=== PATIENT | female | born 1940 | race Caucasian/White ===

== ENCOUNTER 2021-10-13 10:55 | Outpatient (CLI) | payer MEDICARE | END 2021-10-13 10:56 | disposition home or self-care (01) | LOC: TBSIIMAG 10:55 | PROVIDERS: ATTEND Neurological Surgery | DX: M47.816 Spondylosis without myelopathy or radiculopathy, lumbar region (principal); M47.12 Other spondylosis with myelopathy, cervical region; R26.89 Other abnormalities of gait and mobility; G95.9 Disease of spinal cord, unspecified; M48.56XA Collapsed vertebra, not elsewhere classified, lumbar region, initial encounter for fracture; M47.814 Spondylosis without myelopathy or radiculopathy, thoracic region; M51.34 Other intervertebral disc degeneration, thoracic region; M47.812 Spondylosis without myelopathy or radiculopathy, cervical region; M48.02 Spinal stenosis, cervical region; M50.30 Other cervical disc degeneration, unspecified cervical region; G95.89 Other specified diseases of spinal cord | CPT/HCPCS: 72100; 72141; 72146 ==

== ENCOUNTER 2022-08-13 21:11 | Emergency (ER) | payer MEDICARE ==
[2022-08-13 22:43] LABS: #Eosinphils 0.1 thou/uL (0.0-0.7); #Lymphocytes 2.3 thou/uL (1.20-3.40); #Neutrophils 7.1 thou/uL (1.40-6.50); %Basophils 0.1 % (0.0-1.0); %Lymphocytes 21.6 % (21.0-51.0); %Monocytes 9.6 % (0.0-10.0); %Neutrophils 67.7 % (42.0-75.0); Hemoglobin 12.5 g/dL (12.0-16.0); Mean Corpuscular HGB CONC 32.9 g/dL (32.0-36.0); Mean Corpuscular Hemoglobin 30.7 pg (27.0-31.0); Mean Corpuscular Volume 93.3 fl (78.0-98.0); Mean Platelet Volume 9.4 fL (7.4-10.4); Platelet Count 245 10x3/uL (130-400); RBC Distribution Width 11.9 % (11.5-14.5); Red Blood Cell (RBC) Count 4.07 mill/uL (4.20-5.40); White Blood Cell (WBC) Count 10.5 10x3/uL (4.8-10.8)
[2022-08-13 23:02] LABS: ALT (SGPT) 18 U/L (8-55); AST (SGOT) 19 U/L (5-34); Albumin 3.9 g/dL (3.4-4.8); Alkaline Phosphatase 67 U/L (40-110); Anion Gap 15 mmol/L (10-20); BUN (Urea Nitrogen) 22 mg/dL (9.8-20.1); Bilirubin, Total 0.4 mg/dL (0.2-1.2); Calc. Creatinine Clearance 0 mL/min (70-130); Calcium 8.9 mg/dL (7.8-10.44); Carbon Dioxide 24 mmol/L (23-31); Chloride 105 mmol/L (98-107); Estimated GFR 78; Globulin 2.6 g/dL (2.4-3.5); Glucose 110 mg/dL (83-110); Potassium 3.8 mmol/L (3.5-5.1); Protein, Total 6.5 g/dL (5.8-8.1); Sodium 140 mmol/L (136-145)
[2022-08-14] MEDS ORDERED: Ondansetron PF 4 MG/2 ML Vial ONE (00:44)
[2022-08-14] MEDS ORDERED: Morphine 4 MG/ML VIAL ONE (00:45)
== END 2022-08-14 00:50 | disposition home or self-care (01) ==
LOC: ERS 21:11
DX: M25.552 Pain in left hip (principal)
CPT/HCPCS: 36415; 72170; 72192; 80053; 85025; 96374; 96375; J2270; J2405

== ENCOUNTER 2022-10-05 10:05 | Observation (INO) | payer MEDICARE ==
[~2022-10-05 10:05] MED LIST: Magnevist 469MG/ML 20 ML VIAL ONE
[2022-10-05] MEDS ORDERED: Ketorolac Tromethamine 30 MG/ML VIAL ONE (11:19)
[2022-10-05] MEDS ORDERED: Diazepam 10 MG/2 ML SYRINGE ONE (11:19)
[2022-10-05 11:50] LABS: #Eosinphils 0.1 thou/uL (0.0-0.7); #Lymphocytes 1.5 thou/uL (1.20-3.40); #Monocytes 1.3 thou/uL (0.11-0.59); #Neutrophils 11.4 thou/uL (1.40-6.50); %Basophils 0.3 % (0.0-1.0); %Eosinophils 0.4 % (0.0-10.0); %Lymphocytes 10.7 % (21.0-51.0); %Neutrophils 79.6 % (42.0-75.0); Hemoglobin 12.7 g/dL (12.0-16.0); Mean Corpuscular HGB CONC 31.8 g/dL (32.0-36.0); Mean Corpuscular Hemoglobin 28.7 pg (27.0-31.0); Mean Corpuscular Volume 90.2 fl (78.0-98.0); Mean Platelet Volume 8.4 fL (7.4-10.4); Platelet Count 451 10x3/uL (130-400); RBC Distribution Width 12.8 % (11.5-14.5); Red Blood Cell (RBC) Count 4.44 mill/uL (4.20-5.40); White Blood Cell (WBC) Count 14.3 10x3/uL (4.8-10.8)
[2022-10-05] MEDS ORDERED: Fentanyl 100 MCG/2 ML VIAL ONE ×2 (11:56→12:28)
[2022-10-05 12:01] LABS: ALT (SGPT) 21 U/L (8-55); AST (SGOT) 17 U/L (5-34); Albumin 3.6 g/dL (3.4-4.8); Alkaline Phosphatase 69 U/L (40-110); Anion Gap 14 mmol/L (10-20); BUN (Urea Nitrogen) 22 mg/dL (9.8-20.1); Bilirubin, Total 0.3 mg/dL (0.2-1.2); Calc. Creatinine Clearance 0 mL/min (70-130); Carbon Dioxide 22 mmol/L (23-31); Chloride 106 mmol/L (98-107); Estimated GFR 82; Globulin 3.1 g/dL (2.4-3.5); Glucose 125 mg/dL (83-110); Potassium 3.9 mmol/L (3.5-5.1); Protein, Total 6.7 g/dL (5.8-8.1); Sodium 138 mmol/L (136-145)
[2022-10-05 14:52] LABS: Bacteria/HPF None Seen HPF (None Seen); Bilirubin Negative (Negative); Blood, Urine 1+ (Negative); Clarity Clear (Clear); Glucose, Urine (Dipstick) Normal (Negative); Ketone, Urine Negative (Negative); Leukocyte Negative Leu/uL (Negative); Nitrite Negative (Negative); Protein, Urine (Dipstick) 10 mg/dL (Neg-Trace); RBC/HPF 0-3 HPF (0-3); Specific Gravity, Urine 1.042 (1.002-1.036); Squamous Epithelial 0-3 HPF (0-3); WBC/HPF 0-3 HPF (0-3)
[2022-10-05] MEDS ORDERED: Morphine 4 MG/ML VIAL ONE (15:45)
[2022-10-05] MEDS ORDERED: Ondansetron PF 4 MG/2 ML Vial ONE (15:45)
[2022-10-05] MEDS ORDERED: Ondansetron ODT 4 MG TAB SL PRN (18:00)
[2022-10-05] MEDS ORDERED: Acetaminophen 325 MG TAB PO PRN (18:00)
[2022-10-05] MEDS ORDERED: Ondansetron PF 4 MG/2 ML Vial IVP PRN ×2 (18:00→18:41)
[2022-10-05 18:19] VITALS: BMI 32.4
[2022-10-05] MEDS ORDERED: Morphine 4 MG/ML VIAL SLOW IVP PRN (18:41)
[2022-10-05] MEDS ORDERED: Ondansetron ODT 4 MG TAB PO PRN (18:41)
[2022-10-06] MEDS ORDERED: Gabapentin 300 MG CAP PO PRN (01:32)
[2022-10-06] MEDS ORDERED: cloNIDine 0.1 MG TAB PO PRN (01:32)
[2022-10-06] MEDS ORDERED: Levothyroxine Sodium 50 MCG TAB PO SCH ×2 (01:45→06:00)
[2022-10-06] MEDS ORDERED: Rosuvastatin 10 MG TAB PO SCH (01:45)
[2022-10-06] MEDS: Acetaminophen 325 MG TAB PO PRN ×2 (03:24→15:14)
[2022-10-06 06:02] LABS: #Eosinphils 0.1 thou/uL (0.0-0.7); #Lymphocytes 2.3 thou/uL (1.20-3.40); #Monocytes 1.1 thou/uL (0.11-0.59); %Basophils 0.1 % (0.0-1.0); %Eosinophils 0.9 % (0.0-10.0); %Monocytes 10.7 % (0.0-10.0); %Neutrophils 66.3 % (42.0-75.0); Hemoglobin 12.2 g/dL (12.0-16.0); Mean Corpuscular HGB CONC 33.1 g/dL (32.0-36.0); Mean Corpuscular Hemoglobin 30.1 pg (27.0-31.0); Mean Corpuscular Volume 90.8 fl (78.0-98.0); Mean Platelet Volume 8.6 fL (7.4-10.4); Platelet Count 402 10x3/uL (130-400); RBC Distribution Width 12.9 % (11.5-14.5); Red Blood Cell (RBC) Count 4.05 mill/uL (4.20-5.40); White Blood Cell (WBC) Count 10.6 10x3/uL (4.8-10.8)
[2022-10-06 06:26] LABS: Anion Gap 11 mmol/L (10-20); BUN (Urea Nitrogen) 16 mg/dL (9.8-20.1); Calc. Creatinine Clearance 89 mL/min (70-130); Carbon Dioxide 25 mmol/L (23-31); Chloride 106 mmol/L (98-107); Estimated GFR 88; Glucose 115 mg/dL (83-110); Potassium 4.1 mmol/L (3.5-5.1); Sodium 138 mmol/L (136-145)
[2022-10-06] MEDS ORDERED: Diltiazem HCl SR 60 mg Capsule PO SCH (09:00)
[2022-10-06] MEDS ORDERED: methylPREDNISolone Sod Succ 40 MG VIAL IVP SCH (09:00)
[2022-10-06 12:48] VITALS: TEMP 97.8
[2022-10-06 16:36] VITALS: BP 155/68
[2022-10-06] MEDS ORDERED: Rivaroxaban 10 MG TAB PO SCH (21:00)
== END 2022-10-06 16:52 | disposition home or self-care (01) ==
LOC: ERS 10:05 → SURG A 15:38
PROVIDERS: ADMIT Internal Medicine; ATTEND Internal Medicine
DX: M51.17 Intervertebral disc disorders with radiculopathy, lumbosacral region (principal); D72.829 Elevated white blood cell count, unspecified; I10 Essential (primary) hypertension; E78.5 Hyperlipidemia, unspecified; E03.9 Hypothyroidism, unspecified; I48.0 Paroxysmal atrial fibrillation; M43.16 Spondylolisthesis, lumbar region; M51.36 Other intervertebral disc degeneration, lumbar region; M48.061 Spinal stenosis, lumbar region without neurogenic claudication; M48.07 Spinal stenosis, lumbosacral region; Z66 Do not resuscitate; Z79.01 Long term (current) use of anticoagulants; Z79.890 Hormone replacement therapy; Z79.899 Other long term (current) drug therapy; Z88.7 Allergy status to serum and vaccine
CPT/HCPCS: 36415; 51701; 72158; 80048; 80053; 81003; 81015; 85025; 85652; 86140; 96374; 96375; 96376; G0378; J1885; J2270; J2405; J2920; J3010; J3360

== ENCOUNTER 2022-10-07 12:15 | Inpatient (IN) | payer MEDICARE ==
[2022-10-07] MEDS ORDERED: Ketorolac Tromethamine 30 MG/ML VIAL ONE (12:33)
[2022-10-07] MEDS ORDERED: Ondansetron PF 4 MG/2 ML Vial ONE (12:33)
[2022-10-07] MEDS ORDERED: HYDROmorphone 0.5 MG/0.5 ML SYRINGE ONE ×2 (12:33→13:54)
[2022-10-07 12:56] LABS: #Monocytes 0.4 thou/uL (0.11-0.59); #Neutrophils 15.3 thou/uL (1.40-6.50); %Basophils 0.1 % (0.0-1.0); %Eosinophils 0.2 % (0.0-10.0); %Lymphocytes 5.9 % (21.0-51.0); %Monocytes 2.4 % (0.0-10.0); %Neutrophils 91.4 % (42.0-75.0); Hemoglobin 12.9 g/dL (12.0-16.0); Mean Corpuscular HGB CONC 32.4 g/dL (32.0-36.0); Mean Corpuscular Hemoglobin 29.3 pg (27.0-31.0); Mean Corpuscular Volume 90.4 fl (78.0-98.0); Mean Platelet Volume 8.4 fL (7.4-10.4); Platelet Count 553 10x3/uL (130-400); White Blood Cell (WBC) Count 16.8 10x3/uL (4.8-10.8)
[2022-10-07 13:15] LABS: ALT (SGPT) 21 U/L (8-55); AST (SGOT) 18 U/L (5-34); Albumin 3.9 g/dL (3.4-4.8); Alkaline Phosphatase 73 U/L (40-110); Anion Gap 17 mmol/L (10-20); BUN (Urea Nitrogen) 21 mg/dL (9.8-20.1); Bilirubin, Total 0.4 mg/dL (0.2-1.2); Calc. Creatinine Clearance 0 mL/min (70-130); Calcium 9.4 mg/dL (7.8-10.44); Carbon Dioxide 22 mmol/L (23-31); Chloride 104 mmol/L (98-107); Estimated GFR 80; Globulin 3.5 g/dL (2.4-3.5); Glucose 234 mg/dL (83-110); Magnesium 1.8 mg/dL (1.6-2.6); Potassium 4.1 mmol/L (3.5-5.1); Protein, Total 7.4 g/dL (5.8-8.1); Sodium 139 mmol/L (136-145)
[2022-10-07] MEDS ORDERED: Dexamethasone 10 MG/ML VIAL ONE (13:54)
[2022-10-07 17:51] VITALS: BMI 32.2
[2022-10-07] MEDS ORDERED: Ondansetron ODT 4 MG TAB PO PRN (20:06)
[2022-10-07] MEDS ORDERED: Acetaminophen 325 MG TAB PO PRN (20:06)
[2022-10-07] MEDS ORDERED: Morphine 2 MG/ML VIAL SLOW IVP PRN (20:08)
[2022-10-07] MEDS ORDERED: Docusate 100 MG CAP PO PRN (20:08)
[2022-10-07] MEDS ORDERED: Polyethylene Glycol 3350 17 GM Packet PO PRN (20:08)
[2022-10-07] MEDS ORDERED: Electrolyte Replacement Protocol 1 EACH FS SCH (20:15)
[2022-10-07] MEDS ORDERED: Rosuvastatin 10 MG TAB PO SCH (20:15)
[2022-10-07] MEDS: Gabapentin 300 MG CAP PO SCH (20:53)
[2022-10-07] MEDS: Ketorolac Tromethamine 30 MG/ML VIAL IVP PRN (20:53)
[2022-10-07] MEDS: Famotidine 20 MG TAB PO SCH (20:54)
[2022-10-07] MEDS: Diltiazem HCl SR 60 mg Capsule PO SCH (20:54)
[2022-10-07] MEDS ORDERED: Magnesium 2 GM/50 ML(in water) 2 GM in Premix Bag 1 BAG IVPB SCH (22:00)
[2022-10-07 23:38] LABS: Bacteria/HPF None Seen HPF (None Seen); Bilirubin Negative (Negative); Blood, Urine 1+ (Negative); CAUTI Indications for Culture Dysuria,urgency,freq; Clarity Turbid (Clear); Glucose, Urine (Dipstick) Normal (Negative); Ketone, Urine Negative (Negative); Leukocyte 500 Leu/uL (Negative); Nitrite Negative (Negative); Protein, Urine (Dipstick) Negative (Neg-Trace); RBC/HPF 0-3 HPF (0-3); Specific Gravity, Urine 1.013 (1.002-1.036); Squamous Epithelial 0-3 HPF (0-3); Urobilinogen Normal mg/dL (Less than 2)
[2022-10-07 23:39] LABS: Urine Culture Reflex Yes Yes
[2022-10-08] MEDS: Ketorolac Tromethamine 30 MG/ML VIAL IVP PRN (04:26)
[2022-10-08 05:29] LABS: Hemoglobin 12.2 g/dL (12.0-16.0); Mean Corpuscular HGB CONC 32.6 g/dL (32.0-36.0); Mean Corpuscular Hemoglobin 29.4 pg (27.0-31.0); Mean Corpuscular Volume 90.3 fl (78.0-98.0); Mean Platelet Volume 8.7 fL (7.4-10.4); Platelet Count 431 10x3/uL (130-400); Red Blood Cell (RBC) Count 4.16 mill/uL (4.20-5.40); White Blood Cell (WBC) Count 14.5 10x3/uL (4.8-10.8)
[2022-10-08 05:45] LABS: Band 4 % (5-11); Lymphocytes 8 % (21-51); MDiff Complete? YES; Metamyelocyte 1 % (0-0); Monocytes 5 % (0-10); Neutrophil 82 % (42-75)
[2022-10-08 05:47] LABS: Anion Gap 13 mmol/L (10-20); BUN (Urea Nitrogen) 23 mg/dL (9.8-20.1); Calc. Creatinine Clearance 91 mL/min (70-130); Calcium 9.5 mg/dL (7.8-10.44); Carbon Dioxide 25 mmol/L (23-31); Chloride 105 mmol/L (98-107); Estimated GFR 88; Glucose 154 mg/dL (83-110); Potassium 4.4 mmol/L (3.5-5.1); Sodium 139 mmol/L (136-145)
[2022-10-08] MEDS ORDERED: Levothyroxine Sodium 50 MCG TAB PO SCH (06:00)
[2022-10-08] MEDS ORDERED: cefTRIAXone\\ROCEPHIN 1 GM in Sodium Chloride 0.9% 100 ML IVPB SCH (08:00)
[2022-10-08] MEDS: cefTRIAXone\\ROCEPHIN 1 GM in Sodium Chloride 0.9% 100 ML IVPB SCH (09:12)
[2022-10-08] MEDS: Gabapentin 300 MG CAP PO SCH ×3 (09:12→20:16)
[2022-10-08] MEDS: Famotidine 20 MG TAB PO SCH ×2 (09:12→20:16)
[2022-10-08] MEDS: Diltiazem HCl SR 60 mg Capsule PO SCH ×2 (09:12→20:15)
[2022-10-08] MEDS: Rosuvastatin 10 MG TAB PO SCH (20:16)
[2022-10-09] MEDS: Diltiazem HCl SR 60 mg Capsule PO SCH ×2 (09:05→20:14)
[2022-10-09] MEDS: cefTRIAXone\\ROCEPHIN 1 GM in Sodium Chloride 0.9% 100 ML IVPB SCH (09:05)
[2022-10-09] MEDS: Famotidine 20 MG TAB PO SCH ×2 (09:05→20:14)
[2022-10-09] MEDS: Gabapentin 300 MG CAP PO SCH ×3 (09:06→20:14)
[2022-10-09] MEDS ORDERED: Methocarbamol 500 MG TAB PO PRN (09:20)
[2022-10-09] MEDS ORDERED: Morphine 2 MG/ML VIAL SLOW IVP PRN (09:21)
[2022-10-09] MEDS: Rosuvastatin 10 MG TAB PO SCH (21:26)
[2022-10-10] MEDS: HYDROcodone/Acetaminophen 7.5/325 mg Tablet PO PRN ×2 (05:16→09:11)
[2022-10-10] MEDS: Levothyroxine Sodium 50 MCG TAB PO SCH (05:16)
[2022-10-10] MEDS: cefTRIAXone\\ROCEPHIN 1 GM in Sodium Chloride 0.9% 100 ML IVPB SCH (09:10)
[2022-10-10] MEDS: Gabapentin 300 MG CAP PO SCH ×3 (09:10→20:30)
[2022-10-10] MEDS: Famotidine 20 MG TAB PO SCH ×2 (09:10→20:29)
[2022-10-10] MEDS: Diltiazem HCl SR 60 mg Capsule PO SCH ×2 (09:12→20:30)
[2022-10-10] MEDS ORDERED: HYDROcodone/Acetaminophen 10/325 mg Tablet PO PRN (09:37)
[2022-10-10] MEDS ORDERED: HYDROcodone/Acetaminophen 7.5/325 mg Tablet PO PRN (09:37)
[2022-10-10] MEDS ORDERED: Nitrofurantoin Monohyd/M-Cryst 100 MG CAP PO SCH (11:30)
[2022-10-10] MEDS: Rosuvastatin 10 MG TAB PO SCH (20:30)
[2022-10-10] MEDS: Nitrofurantoin Monohyd/M-Cryst 100 MG CAP PO SCH (20:31)
[2022-10-11] MEDS: Levothyroxine Sodium 50 MCG TAB PO SCH (05:19)
[2022-10-11] MEDS: HYDROcodone/Acetaminophen 7.5/325 mg Tablet PO PRN ×3 (06:24→22:41)
[2022-10-11] MEDS: Diltiazem HCl SR 60 mg Capsule PO SCH ×2 (09:08→21:13)
[2022-10-11] MEDS: Gabapentin 300 MG CAP PO SCH ×3 (09:10→21:13)
[2022-10-11] MEDS: Famotidine 20 MG TAB PO SCH ×2 (09:10→21:13)
[2022-10-11] MEDS: Nitrofurantoin Monohyd/M-Cryst 100 MG CAP PO SCH ×2 (09:10→21:13)
[2022-10-11] MEDS: traMADol HCl 50 MG TAB PO PRN (19:22)
[2022-10-11] MEDS: Rosuvastatin 10 MG TAB PO SCH (21:13)
[2022-10-12] MEDS: traMADol HCl 50 MG TAB PO PRN ×2 (02:18→09:40)
[2022-10-12] MEDS: HYDROcodone/Acetaminophen 7.5/325 mg Tablet PO PRN (06:27)
[2022-10-12] MEDS: Levothyroxine Sodium 50 MCG TAB PO SCH (06:27)
[2022-10-12 08:44] LABS: #Basophils 0.1 thou/uL (0.0-0.2); #Eosinphils 0.3 thou/uL (0.0-0.7); #Lymphocytes 3.1 thou/uL (1.20-3.40); #Neutrophils 8.7 thou/uL (1.40-6.50); %Basophils 0.5 % (0.0-1.0); %Eosinophils 2.5 % (0.0-10.0); %Lymphocytes 23.4 % (21.0-51.0); %Monocytes 7.5 % (0.0-10.0); %Neutrophils 66.1 % (42.0-75.0); Mean Corpuscular HGB CONC 31.8 g/dL (32.0-36.0); Mean Corpuscular Hemoglobin 29.2 pg (27.0-31.0); Mean Corpuscular Volume 91.9 fl (78.0-98.0); Mean Platelet Volume 8.2 fL (7.4-10.4); Platelet Count 406 10x3/uL (130-400); RBC Distribution Width 13.5 % (11.5-14.5); Red Blood Cell (RBC) Count 4.79 mill/uL (4.20-5.40); White Blood Cell (WBC) Count 13.1 10x3/uL (4.8-10.8)
[2022-10-12] MEDS: Diltiazem HCl SR 60 mg Capsule PO SCH (09:36)
[2022-10-12] MEDS: Nitrofurantoin Monohyd/M-Cryst 100 MG CAP PO SCH (09:36)
[2022-10-12] MEDS: Famotidine 20 MG TAB PO SCH (09:36)
[2022-10-12] MEDS: Gabapentin 300 MG CAP PO SCH (09:37)
[2022-10-12 11:32] VITALS: BP 166/76; TEMP 97.7
== END 2022-10-12 11:32 | disposition home or self-care (01) | DRG 552 ==
LOC: ERS 12:15 → SJJU 15:28 → OBSVTOIN 10-08 14:36
PROVIDERS: ADMIT Family Medicine; ATTEND Internal Medicine
DX: M48.061 Spinal stenosis, lumbar region without neurogenic claudication (principal); N39.0 Urinary tract infection, site not specified; I48.0 Paroxysmal atrial fibrillation; M51.16 Intervertebral disc disorders with radiculopathy, lumbar region; I10 Essential (primary) hypertension; E78.5 Hyperlipidemia, unspecified; M48.07 Spinal stenosis, lumbosacral region; M41.56 Other secondary scoliosis, lumbar region; B96.20 Unspecified Escherichia coli [E. coli] as the cause of diseases classified elsewhere; E03.9 Hypothyroidism, unspecified; Z96.653 Presence of artificial knee joint, bilateral; D72.829 Elevated white blood cell count, unspecified; K59.00 Constipation, unspecified; Z88.8 Allergy status to other drugs, medicaments and biological substances; Z79.899 Other long term (current) drug therapy; Z79.890 Hormone replacement therapy; Z79.01 Long term (current) use of anticoagulants; Z90.49 Acquired absence of other specified parts of digestive tract; Z98.890 Other specified postprocedural states; Z98.51 Tubal ligation status; Z87.898 Personal history of other specified conditions; Z98.41 Cataract extraction status, right eye; Z98.42 Cataract extraction status, left eye; Z90.710 Acquired absence of both cervix and uterus
CPT/HCPCS: 36415; 51701; 72131; 72158; 80048; 80053; 81001; 81003; 81015; 83735; 85025; 85652; 86140; 87077; 87086; 87186; 96365; 96366; 96367; 96374; 96375; 96376; A9579; G0378; J0696; J1100; J1170; J1885; J2270; J2272; J2405; J2920; J3010; J3360; J3475; J3490

== ENCOUNTER 2022-10-15 07:28 | Inpatient (IN) | payer MEDICARE ==
[2022-10-15] MEDS ORDERED: fentaNYL PF 100 MCG/2 ML SYRINGE ONE (13:30)
[2022-10-15] MEDS ORDERED: Vancomycin 1 GM VIAL ONE (13:34)
[2022-10-15] MEDS ORDERED: Magnesium 5 GM/10 ML VIAL ONE (13:42)
[2022-10-15] MEDS ORDERED: Sodium Chloride 0.9% 100 ML ONE (13:42)
[2022-10-15] MEDS ORDERED: CEFAZOLIN 2 GM VIAL ONE (13:42)
[2022-10-15 13:53] LABS: SARS-CoV-2 NAA Rapid Test Not Detected (NotDetected)
[2022-10-15] MEDS ORDERED: NEOSTIGMINE 3 MG/3 ML SYR 3 MG/3 ML SYRINGE ONE (13:53)
[2022-10-15] MEDS ORDERED: Rocuronium Bromide 10 MG/ML (10ML VIAL) ONE (13:53)
[2022-10-15] MEDS ORDERED: Ondansetron PF 4 MG/2 ML Vial ONE (13:53)
[2022-10-15] MEDS ORDERED: PROPOFOL 200 MG/20 ML VIAL ONE (13:53)
[2022-10-15] MEDS ORDERED: Glycopyrrolate 0.2 MG/ML 5 ML SYRINGE ONE (13:53)
[2022-10-15] MEDS ORDERED: Dexamethasone 20 MG/5 ML VIAL ONE (13:53)
[2022-10-15] MEDS ORDERED: Lidocaine 1% PF 5 ML VIAL ONE (13:53)
[2022-10-15] MEDS ORDERED: Milk Of Magnesia 30 ML UDCUP PO PRN (15:11)
[2022-10-15] MEDS ORDERED: diphenhydrAMINE 25 MG CAP PO PRN (15:11)
[2022-10-15] MEDS ORDERED: HYDROcodone/Acetaminophen 10/325 mg Tablet PO PRN ×2 (15:11→18:49)
[2022-10-15] MEDS ORDERED: Ondansetron PF 4 MG/2 ML Vial IVP PRN (15:11)
[2022-10-15] MEDS ORDERED: Morphine 2 MG/ML VIAL SLOW IVP PRN (15:11)
[2022-10-15] MEDS ORDERED: Promethazine 25 MG TAB PO PRN (15:11)
[2022-10-15] MEDS ORDERED: Mag-Al 1200 mg/1200 mg/30 ML UDCUP PO PRN (15:11)
[2022-10-15] MEDS ORDERED: cloNIDine 0.1 MG TAB PO PRN ×2 (15:17→18:44)
[2022-10-15] MEDS ORDERED: Ondansetron HCl/PF 4 MG/2 ML Vial IVP PRN (15:19)
[2022-10-15] MEDS ORDERED: Promethazine HCl 25 MG/ML VIAL IM PRN (15:19)
[2022-10-15] MEDS ORDERED: Morphine Sulfate 2 MG/ML SYRINGE SLOW IVP PRN (15:19)
[2022-10-15] MEDS ORDERED: hydrALAZINE 20 MG/ML VIAL SLOW IVP PRN (15:19)
[2022-10-15] MEDS ORDERED: Morphine 2 MG/ML VIAL ONE ×4 (15:23→16:56)
[2022-10-15] MEDS ORDERED: Fentanyl 100 MCG/2 ML VIAL ONE ×2 (15:33→17:33)
[2022-10-15] MEDS ORDERED: Morphine 4 MG/ML VIAL ONE (15:47)
[2022-10-15] MEDS ORDERED: HYDROmorphone 0.5 MG/0.5 ML SYRINGE ONE ×4 (16:08→16:34)
[2022-10-15] MEDS ORDERED: Ketorolac Tromethamine 30 MG/ML VIAL ONE (16:13)
[2022-10-15] MEDS ORDERED: Acetaminophen 500 MG TAB ONE (16:13)
[2022-10-15] MEDS ORDERED: oxyCODONE 5 MG TAB ONE (16:59)
[2022-10-15] MEDS: Sodium Chloride 0.9% 1,000 ML IV SCH (18:44)
[2022-10-15] MEDS ORDERED: Methocarbamol 500 MG TAB PO PRN (18:50)
[2022-10-15 20:12] LABS: Anion Gap 13 mmol/L (10-20); BUN (Urea Nitrogen) 26 mg/dL (9.8-20.1); Calc. Creatinine Clearance 78 mL/min (70-130); Calcium 8.7 mg/dL (7.8-10.44); Carbon Dioxide 27 mmol/L (23-31); Chloride 103 mmol/L (98-107); Estimated GFR 77; Glucose 202 mg/dL (83-110); Magnesium 2.1 mg/dL (1.6-2.6); Potassium 4.7 mmol/L (3.5-5.1); Sodium 138 mmol/L (136-145)
[2022-10-15] MEDS: traMADol HCl 50 MG TAB PO PRN (20:24)
[2022-10-15] MEDS: Diltiazem HCl SR 60 mg Capsule PO SCH (20:24)
[2022-10-15] MEDS: Gabapentin 300 MG CAP PO SCH (20:24)
[2022-10-15] MEDS ORDERED: Gabapentin 300 MG CAP PO SCH (21:00)
[2022-10-15] MEDS ORDERED: Diltiazem HCl SR 60 mg Capsule PO SCH (21:00)
[2022-10-15 21:15] LABS: #Eosinphils 0.1 thou/uL (0.0-0.7); #Lymphocytes 1.2 thou/uL (1.20-3.40); #Monocytes 0.8 thou/uL (0.11-0.59); #Neutrophils 12.7 thou/uL (1.40-6.50); %Basophils 0.1 % (0.0-1.0); %Eosinophils 0.4 % (0.0-10.0); %Lymphocytes 7.8 % (21.0-51.0); %Monocytes 5.5 % (0.0-10.0); %Neutrophils 86.2 % (42.0-75.0); Hemoglobin 12.1 g/dL (12.0-16.0); Mean Corpuscular HGB CONC 31.7 g/dL (32.0-36.0); Mean Corpuscular Volume 91.4 fl (78.0-98.0); Platelet Count 338 10x3/uL (130-400); RBC Distribution Width 13.6 % (11.5-14.5); Red Blood Cell (RBC) Count 4.18 mill/uL (4.20-5.40); White Blood Cell (WBC) Count 14.8 10x3/uL (4.8-10.8)
[2022-10-15] MEDS: CEFAZOLIN 2 GM in Sodium Chloride 0.9% 100 ML IVPB SCH (22:33)
[2022-10-16 00:54] LABS: Bilirubin Negative (Negative); Blood, Urine Negative (Negative); Clarity Clear (Clear); Glucose, Urine (Dipstick) Normal (Negative); Ketone, Urine Negative (Negative); Leukocyte Negative Leu/uL (Negative); Nitrite Negative (Negative); Protein, Urine (Dipstick) Negative (Neg-Trace); Specific Gravity, Urine 1.024 (1.002-1.036); Urobilinogen Normal mg/dL (Less than 2); pH, Urine 5.5 (5.0-9.0)
[2022-10-16 02:53] VITALS: BMI 32.1
[2022-10-16] MEDS: Sodium Chloride 0.9% 1,000 ML IV SCH ×2 (04:18→17:20)
[2022-10-16] MEDS: traMADol HCl 50 MG TAB PO PRN ×3 (04:26→17:21)
[2022-10-16] MEDS ORDERED: Levothyroxine Sodium 50 MCG TAB PO SCH (06:00)
[2022-10-16] MEDS: Levothyroxine Sodium 50 MCG TAB PO SCH (06:14)
[2022-10-16] MEDS: CEFAZOLIN 2 GM in Sodium Chloride 0.9% 100 ML IVPB SCH ×3 (06:14→21:40)
[2022-10-16] MEDS: Furosemide 20 MG TAB PO SCH (08:59)
[2022-10-16] MEDS: Potassium Chloride 8 MEQ TAB PO SCH (08:59)
[2022-10-16] MEDS ORDERED: Potassium Chloride 10 MEQ TAB PO SCH (09:00)
[2022-10-16] MEDS: Diltiazem HCl SR 60 mg Capsule PO SCH ×2 (09:00→21:40)
[2022-10-16] MEDS ORDERED: Furosemide 20 MG TAB PO SCH (09:00)
[2022-10-16] MEDS: Polyethylene Glycol 3350 17 GM Packet PO SCH (09:00)
[2022-10-16] MEDS: Gabapentin 300 MG CAP PO SCH ×3 (09:00→21:39)
[2022-10-16] MEDS: HYDROcodone/Acetaminophen 10/325 mg Tablet PO PRN (21:39)
[2022-10-17] MEDS: traMADol HCl 50 MG TAB PO PRN (01:08)
[2022-10-17] MEDS: CEFAZOLIN 2 GM in Sodium Chloride 0.9% 100 ML IVPB SCH (05:26)
[2022-10-17] MEDS: Levothyroxine Sodium 50 MCG TAB PO SCH (05:27)
[2022-10-17] MEDS: Sodium Chloride 0.9% 1,000 ML IV SCH (07:10)
[2022-10-17] MEDS: Polyethylene Glycol 3350 17 GM Packet PO SCH (09:17)
[2022-10-17] MEDS: Furosemide 20 MG TAB PO SCH (09:17)
[2022-10-17] MEDS: Potassium Chloride 8 MEQ TAB PO SCH (09:18)
[2022-10-17] MEDS: Diltiazem HCl SR 60 mg Capsule PO SCH (09:18)
[2022-10-17] MEDS: HYDROcodone/Acetaminophen 10/325 mg Tablet PO PRN ×2 (09:19→13:59)
[2022-10-17] MEDS: Gabapentin 300 MG CAP PO SCH ×2 (09:19→15:14)
[2022-10-17 11:44] LABS: Hemoglobin 11.8 g/dL (12.0-16.0); Mean Corpuscular HGB CONC 31.5 g/dL (32.0-36.0); Mean Corpuscular Hemoglobin 28.9 pg (27.0-31.0); Mean Corpuscular Volume 91.6 fl (78.0-98.0); Mean Platelet Volume 8.7 fL (7.4-10.4); Platelet Count 262 10x3/uL (130-400); RBC Distribution Width 13.8 % (11.5-14.5); Red Blood Cell (RBC) Count 4.08 mill/uL (4.20-5.40); White Blood Cell (WBC) Count 13.7 10x3/uL (4.8-10.8)
[2022-10-17 18:45] VITALS: BP 141/60; TEMP 98.4
== END 2022-10-17 18:16 | DRG 517 ==
LOC: EDSTATUS 07:28 → SURG A 08:32 → SURG B 18:02
PROVIDERS: ADMIT Neurological Surgery; ATTEND Neurological Surgery
PROC: 01NB0ZZ Release Lumbar Nerve, Open Approach (ICD-10-PCS; principal; 2022-10-15)
PROC: 0SP004Z Removal of Internal Fixation Device from Lumbar Vertebral Joint, Open Approach (ICD-10-PCS; 2022-10-15)
DX: M48.061 Spinal stenosis, lumbar region without neurogenic claudication (principal); M54.16 Radiculopathy, lumbar region; Z20.822 Contact with and (suspected) exposure to COVID-19; I10 Essential (primary) hypertension; E78.5 Hyperlipidemia, unspecified; E03.9 Hypothyroidism, unspecified; D72.829 Elevated white blood cell count, unspecified; I48.0 Paroxysmal atrial fibrillation; R73.9 Hyperglycemia, unspecified; Z79.01 Long term (current) use of anticoagulants; Z88.7 Allergy status to serum and vaccine; Z85.038 Personal history of other malignant neoplasm of large intestine; Z79.899 Other long term (current) drug therapy; Z80.6 Family history of leukemia; Z80.0 Family history of malignant neoplasm of digestive organs; Z80.3 Family history of malignant neoplasm of breast; Z80.49 Family history of malignant neoplasm of other genital organs; Z82.49 Family history of ischemic heart disease and other diseases of the circulatory system; Z90.5 Acquired absence of kidney; Z87.440 Personal history of urinary (tract) infections; Z79.890 Hormone replacement therapy
CPT/HCPCS: 36415; 36416; 80048; 81003; 83735; 84443; 85025; 85027; 93005; 93010; J1100; J1170; J1885; J2270; J2272; J2405; J2704; J3010; J3370; J3475; J3490; J7050; U0002